=== PATIENT | male | born 1960 | race Caucasian/White ===

== ENCOUNTER 2025-03-16 09:41 | Outpatient (AMB) | payer OTHER, SELFPAY ==
--- OUTSIDE RECORDS SUMMARY | 2025-03-16 09:30 | XMS_ITS | Encounter Summary ---
Author Organization [employer] Address [address] [place] [address] Care Team Providers Care Manager Home Name Role Phone Ernesto Espinoza NP Primary Care Provider [phone] Reason for Visit * Consultation (Routine) - Authorized Specialty Diagnoses / Procedures Referred By Contac t Referred To Contact Neurosurgery Diagnoses DDD (degenerative disc disease), lumbar Lumbar stenosis with neurogenic claudication Scoliosis Spondylosis of cervical spine Chronic right SI joint pain Ernesto Espinoza NP [address] [address] Phone: tel: fax:[phone] [facility] [address] [place] [address] Phone: tel: fax: Referral ID Status Reason Start Date Expiration Date Visits Requested Visits Authorized [id number] Authorized Specialty Services Required 02/23/2025 02/23/2026 1 1 Encounter Details Date Type Department Care Team (Latest Contact Info) Description 03/16/2025 9:30 AM EDT [facility] [address] [place] [phone] DDD (degenerative disc disease), lumbar; Lumbar stenosis with neurogenic claudication; Scoliosis; Spondylosis of cervical spine; Chronic right SI joint pain Social History Tobacco Use Types Packs/Day Years Used Date Smoking Tobacco: Never Smokeless Tobacco: Never Alcohol Use Standard Drinks/Week Comments Not Currently 0 (1 standard drink = 0.6 oz pur e alcohol) Sex and Gender Information Value Date Recorded Sex Assigned at Male 10/02/2024 7:08 PM EDT Legal Sex Male 8:28 AM EST Gender Identity Male 10/02/2024 7:08 PM EDT Sexual Orientation Straight 10/02/2024 7: 08 PM EDT documented as of this encounter Plan of Treatment Upcoming Encounters Date Type Department Care Team (Latest Contact Info) Description 03/16/2025 1:00 PM EDT Pre-Admission Testing [facility] Pre-Admission Testing [address] [place] [address] 03/17/2025 2:00 PM EDT Treatment [facility] Physical Therapy [address] [place] [address] Delfino Britton PT 03/26/2025 9:30 AM EDT Hospital Encounter [facility] Main [place] [address] [place] [phone] Janet Beckford MD [address] [place] [address] 03/26/2025 9:30 AM EDT - 03/26/2025 11:30 AM EDT Surgery [facility] Main OR [address] [place] [address] Janet Beckford MD [address] [place] [address] L3-4 resection of synovial cyst w/ coflex stabilization [44485 (CPT ) +1 more] 04/03/2025 8:40 AM EDT Clinical Support [address] [address] 05/25/2025 1:00 PM EST PACE External Visit [address] [address] Scheduled Procedures Name Priority Associated Diagnoses Date/Ti me DECOMPRESSION LUMBAR INTRALAMINAR IMPLANT Spinal stenosis, lumbar region without neurogenic claudication 03/26/2025 9:30 AM EDT documented as of this encounter Visit Diagnoses Diagnosis Spinal stenosis, lumbar region without neurogenic claudication- Primary DDD (degenerative disc disease), lumbar Degeneration of lumbar or lumbosacral intervertebral disc Lumbar stenosis with neurogenic claudication Scoliosis Scoliosis (and kyphoscoliosis), idiopathic Spondylosis of cervical spine Chronic right SI joint pain Disorders of sacrum Spinal stenosis, lumbar region without neurogenic claudication documented in this encounter Orders Outpatient Referral Count Last Ordered Date Fir st Ordered Date AMB REFERRAL TO NEUROSURGERY 03/16/2025 documented in this encounter Care Teams Manager Home Relationship Specialty Start Date End Date Ernesto Espinoza NP [address] [place] [address] PCP - General PACE 01/30/25 documented as of this encounter
--- NOTE | 2025-03-16 09:51 | A.SPINEOV_ITS ---
Vital Signs 03/16/25 09:51 Height 5 ft 5 in Weight 180 lb BMI 30.0 Intake Visit Reasons: LBP Intake Note: Mr. Pearson is here today c/o Low back pain and Difficulty with walking. [employer] Worker Required: No Allergies ibuprofen Allergy (Severe, Verified 03/16/25 09:52) Rash Penicillins Allergy (Severe, Verified 03/16/25 09:52) Rash Physical Exam Vital Signs: BMI result Body Mass Index 30.0 Assessment & Plan Assessment & Plan (1) Lumbar degenerative disc disease: Code(s): M51.369 - Other intervertebral disc degeneration, lumbar region without mention of lumbar back pain or lower extremity pain Category: Medical Plan Dear Ernesto, Thank you for referring Mr Pearson to our office today. He is a 64-year-old gentleman who comes in today for a 2nd opinion. He was a little confused as to why he was here. He is due to have surgery next week I believe with at [facility]. He had an L3-4 decompression in 2022, and had recurrence of right-sided leg pain, was diagnosed with a synovial cyst on the right at L3-4. He is going to have coflex placed and removal of synovial cyst. He has back pain and right leg pain that goes into his anterior thigh. He has been through conservative management in the form of therapy and injections as well as medications. PMH: Cerebral palsy with spasticity, asthma, GERD, high cholesterol Social hx: He does not smoke, drink or use any recreational drugs Medications: Tylenol, aspirin, gabapentin Singulair, simvastatin, omeprazole Allergies: Ibuprofen and penicillin Physical exam: Walks with a spastic gait and a walker. He has some mild weakness of his right hip flexor. Reflexes are brisk. Imaging review: Lumbar MRI done at [facility] shows disc degeneration at L3-4 with a slight spondylolisthesis, right-sided synovial cyst causing compression of the right L4 nerve Impression: 64-year-old gentleman here for a 2nd opinion about his lumbar spin e. He was little confused why he was here as he is already have in a planned surgery with Dr. Jarquin in the next week or so to have a coflex device placed and resection of the synovial cyst. He is happy with the plan and wants to move ahead with the surgery to help with his pain. His MRIs show he has a synovial cyst and slight spondylolisthesis. He is looking to avoid a fusion and are going to place coflex and this certainly seems reasonable given his symptomatic complaints and his MRI findings. Thank you for allowing us to care for your patient. The total time spent with this visit with this patient was 45 minutes reviewing history, physical exam, lumbar imaging review, and implementation of treatment plan or further diagnostic testing Mc Thrasher MD,PhD [facility] Coding Level of Care Code New Pt Level 4 (91980) Diagnoses Lumbar degenerative disc disease M51.369
--- OUTSIDE RECORDS SUMMARY | 2025-03-16 11:48 | XMS_ITS ---
Author Organization [facility] Address [address] [place] [address] Phone Care Team Providers Care Casing Running Machine Tender Name Role Phone Ernesto Espinoza NP Primary Care Provider [phone] [facility] Status:Enrolled (Active) Start date:01/26/2025 Enrollment date:01/26/2025 Related program episode:Program of All-Inclusive Care for the Elderly (Active) Case Team Name Relationship Phone Cristel Jaramillo MATERIAL HANDLING TECHNICIAN Registered Nurse(Responsible S taff) Continued Care and Services Coordination
--- OUTSIDE RECORDS SUMMARY | 2025-03-16 11:48 | XMS_ITS | Encounter Summary ---
Author Organization [employer] Address [address] [place] [address] Care Team Providers Care Occupational Nurse Name Role Phone Ernesto Espinoza NP Primary Care Provider [phone] Reason for Visit * Reason Onset Date Comments Scheduling 03/12/2025 T.C to confirm P T visit. No answer VM left for participant to call back if he is interested in progressing with ex and re assess HEP. Encounter Details Date Type Department Care Team (Late st Contact Info) Description 03/12/2025 Telephone Ticket [facility] [address] [place] [address] Delfino Britton, PT Social History Tobacco Use Types Packs/Day Years [...] PM EDT documented as of this encounter Progress Notes * Delfino Britton PT - 03/12/2025 11:22 AM EDT T.C to confirm PT visit. No answer VM left for participant to call back if he is interested in progressing with ex and re assess HEP. documented in this encounter Plan of Treatment Upcoming Encounters Date Type Department Care Team (Latest Contact Info) Description 03/16/2025 1:00 PM EDT Pre-Admission Testing [facility] Pre-Admission Testing [address] [place] [phone] 03/17/2025 2:00 PM EDT Treatment [facility] Physical Therapy [address] [place] [address] Delfino Britton, VANESA 03/26/2025 9:30 AM EDT Hospital Encounter [facility] Main OR [address] [place] [address] Janet Beckford MD [address] [place] [address] 03/26/2025 9:30 AM EDT - 03/26/2025 11:30 AM EDT Surgery [facility] OR [address] [place] [phone] Janet Beckford MD [address] [place] [address] L3-4 resection of synovial cyst w/ coflex stabilization [[id number] (CPT ) +1 more] 04/03/2025 8:40 AM EDT [facility] [address] [address] 05/25/2025 1:00 PM EST PACE External Visit [address] [address] Scheduled Procedures Name Priority Associated Diagnoses Date/Ti me DECOMPRESSION LUMBAR INTRALAMINAR IMPLANT Spinal stenosis, lumbar region without neurogenic claudication 03/26/2025 9:30 AM EDT documented as of this encounter Visit Diagnoses Not on filedocumented in this encounter Care Teams Occupational Nurse Relationship Specialty Start Date End Date Ernesto Espinoza NP [address] [place] [address] PCP - General PACE 01/30/25 documented as of this encounter
--- OUTSIDE RECORDS SUMMARY | 2025-03-16 11:48 | XMS_ITS ---
Author Organization [facility] Address [address] [place] [address] Phone Care Team Providers Care Electrician Refinery Name Role Phone Ernesto Espinoza NP Primary Care Provider [phone] Program of All-Inclusive Care for the Elderly Status:Enrolled (Active) Start date:09/30/2024 Enrollment date:01/30/2025 Enrollment reason:Post acute care coordination Related social drivers of health:Housing Instability, TH Health Literacy, Financial Risk, Transportation, Social Isolation, Food Risk Related service episodes:[facility] Home Health Aide Services (Active) Overview This episode will track PACE documentation. Case Team Name Relationship Phone Ernesto Espinoza PROOFER PREPRESS Nurse Practitioner [phone] Steve Escalante Recreational Therapist Kelsey Wheatley RN Programming Internship Cristel Jaramillo OUTCOMES ANALYST Chief Transfer And Pumphouse Operator Pavel Ohara OT Occupational Therapist Hieu Hay RN Registered Nurse Marianne Spann RD Dietitian Rei Srivastava PT Physical Therapist Morris Hart [facility] Officer Anand LIZARRAGAW [employer] Developer Keisha Liang operations support managerProgramming Internship Alecia Wynn RN Registered Nurse Renay Atkinson [employer] Developer Bere Olivo OT Occupational Therapist Matilde VEGAW [employer] Developer Delfino Britton PT Physical Therapist Lizabeth Mendoza MD Consulting Physician Continued Care and Services Coordination
--- OUTSIDE RECORDS SUMMARY | 2025-03-16 11:49 | XMS_ITS | Clinical Summary ---
Author Organization [facility] Address [address] [place] [address] Care Team Providers Care Stock Shaper Name Role Phone Angeline Onofre MD Primary Care Provider Social History Tobacco Use Types Packs/Day Years Used Date Smoking Tobacco: Never Assessed Sex and Gender Information Value Date Recorded Sex Assigned at Not on file Legal Sex Male 1:47 PM EDT Gender Identity Not on file Sexual Orientation Not on file Plan of Treatment Health Maintenance Due Date Last Done Comments Hepatitis C Virus Screening 1960 HIV Screening 1973 DTaP/Tdap/Td Vaccines (1 - Tdap) 1979 Pneumococcal Vaccines 50+ (1 of 1 - PCV) 2010 Zoster (Shingles) Vaccine (1 of 2) 2010 COVID-19 Vaccine ( - 2023-2 5 season) 2025 RSV Vaccine 60 years and old er and Patients (1 - 1-dose 75+ series) 2035 Hepatitis B Vaccines Aged Out No long er eligible based on patient's age to complete this topic Care Teams Stock Shaper Relationship Specialty Start Date End Date Angeline Onofre MD [address] [place] [id number] PCP - General
--- OUTSIDE RECORDS SUMMARY | 2025-03-16 11:49 | XMS_ITS | Clinical Summary ---
Author Organization [facility] Address [address] [place] [address] Phone Care Team Providers Care Car Sealer Name Role Phone Ernesto Espinoza NP Primary Care Provider [phone] Allergies Active Allergy Reactions Criticality Noted Date Comments Ibuprofen Nausea And Vomiting 02/27/2018 Penicillins Rash 02/27/2018 Medications medical supply, miscellaneous (MISCELLANEOUS MEDICAL SUPPLY MISC) Cpap historical Acti ve polyethylene glycol (Golytely) 236-22.74-6.74 -5.86 gram solution Take 4L by mouth once for one dose. May substitue any PEG. Starting at 6PM the night before your procedure drink 1 8oz glasses at your own pace until you complete half of the gallon. Finish 2nd half of the gallon 5 hours before your procedure. 4000 mL 12/11/19 25 Active Additional Information Patient not taking.Reported on 02/06/2025 acetaminophen (Tylenol Arthritis Pain) 650 mg 8 hr tabletIndications: Lumbar stenosis with neurogenic claudication Take 2 tablets (1,300 mg total) by mouth 1 (one) time each day. 56 tablet 11 02/12/20 026 Active albuterol HFA (PROAIR HFA ; PROVENTIL HFA ; VENTOLIN HFA) 90 mcg/actuation inhalerIndications :Mild intermittent asthma without complication Inhale 2 puffs by mouth every 6 (six) hours if needed for wheezing. Home (Next Day Home) 6.7 g 5 02/12/20 25 026 Active alfuzosin (UROXATRAL) 10 mg 24 hr tabletIndications: Benign prostatic hyperplasia with lower urinary tract symptoms, symptom details unspecified Take 1 tablet (10 mg total) by mouth 1 (one) time each day. Do not crush, chew, or split. 28 each 02/12/20 25 Active aspirin 81 mg EC tabletIndications: Mixed hyperlipidemia Take 1 tablet (81 mg total) by mouth 1 (one) time each day. 28 each 02/12/20 25 Active bisacodyL (DULCOLAX) 5 mg EC tabletIndications: Constipation, unspecified constipation type Take 2 tablets by mouth right before beginning bowel prep. See instructions provided by the office 2 tablet 02/12/20 Active cetirizine (ZyrTEC) 10 mg tabletIndications: Allergic rhinitis, unspecified seasonality, unspecified trigger Take 1 tablet (10 mg total) by mouth 1 (one) time each day. 90 tablet 1 02/12/20 Active gabapentin (NEURONTIN) 300 mg capsuleIndications :Lumbar stenosis with neurogenic claudication Take 1 capsule (300 mg total) by mouth at bedtime. at bedtime 28 each 02/12/20 Active montelukast (SINGULAIR) 10 mg tabletIndications: Mild intermittent asthma without complication Take 1 tablet (10 mg total) by mouth at bedtime. 28 tablet 02/12/20 Active omeprazole (PriLOSEC) [address] capsuleIndications :Gastroesophageal reflux disease without esophagitis Take 1 capsule (40 mg total) by mouth 1 (one) time each day. Do not crush or chew. 28 capsule 5 02/12/20 Active simvastatin (ZOCOR) 20 mg tabletIndications: Mixed hyperlipidemia Take 1 tablet (20 mg total) by mouth at bedtime. 28 each 02/12/20 Active Active Problems Problem Noted Date Diagnosed Date Spinal stenosis, lumbar eva on without neurogenic claudication 02/27/2025 Healthcare maintenance 02/16/2025 Assessment & Plan (02/16/2025 10:34 AM EDT): Documentation is for encounter on 02/04/2025: HBA1C = 5.2%. Par has a reported history of prediabetes (The HbA1c test is crucial for diagnosing prediabetes. An HbA1c level between 5.7% and 6.4% indicates prediabetes). Currently he is doing better with his blood glucose control with diet control. Chronic condition, stable, asymptomatic, will continue current medications and CTM. Osteoarthritis of spine with radiculopathy, lumb ar region 11/28/2024 Assessment & Plan (02/04/2025 4:09 PM EDT): As aforementioned, he is symptomatic from lumbar stenosis with right lower extremity radiculopathy. Neurosurgery f/u this Sunday02/06/2025, future surgery is pending, will continue current medications and monitor. Assessment & Plan (11/28/2024 4:02 PM EDT): Patient is s/p L3-4 decompression 12/21/2022. It did help some of his walking symptoms for a time. Then he started having progressive worsening of his low back pain. Currently he states he gets a lot of back pain with going from sitting to standing, when he standing for any length of time he has a lot of right low back pain. He had right L3 TFE (with attempt to rupture cyst) November 21, [address] Sher, saw some improvement from his back pain, before injection 04/10, after injection -02/08. He is also noticing some right anterior thigh pain 11/08 that mostly has been bothering him since injection. He states also his right knee feels weird . He also has history of right SI joint injection 09/18/2024 and states it did not help his pain at all, even temporarily. He also had right L4-5, L5-S1 facet injections 08/16/2024, bilateral L4-5, L5-S1 facet injections 11/23/2023. He cannot specifically recall if those injections helped his back pain. Since his previous lumbar surgery he has also tried physical therapy. Patient had MRI lumbar spine 10/28/2024 [facility] that showed right L3-4 synovial cyst from the right facet joint projecting into the central canal causing moderate stenosis. He also has a disc at L4-5. No significant stenosis at any other level. I reviewed MRI images in detail with the patient and his daughter on the computer. Dr. Jarquin also reviewed the MRI today as well. Mr. Pearson has persistent right low back pain, some radicular pain into the right anterior thigh, affecting his ability to go from sit to standing, standing any length of time, makes his walking more difficult. He has had multiple cortisone injections without long-term improvement. Dr. Jarquin offered patient reexploration right L3- 4 decompression and placement of Coflex device. We discussed the surgery in detail including risk benefits, including but not limited to need for general anesthesia, hematoma, infection, increased risk for spinal fluid leak with reexploration surgery, damage to a nerve, potential for no improvement in symptoms postop. Postop restrictions and expectations discussed. All questions answered. He will discuss with his family, will call us with an update next week. Dr. Jarquin saw patient on today's visit as well for surgery discussion. Chronic right SI joint pain 09/07/2023 Overview (04/03/2024): Last Assessment & Plan: Patient is over 8 months s/p L3-4 decompression, did not see improvement in the numbness tingling in his feet, leg symptoms, improvement in walking postop. He was having right low back and SI joint/hip pain, went to physical therapy once a week for about 6 weeks. Thinks it was helping somewhat but he still is bothered by the right low back pain, which he describes as being in the right hip and pelvic region, sit bone/tailbone. In 2020 he had cortisone injections with Dr. Sher, including L4-5, L5-S1 facet injections, which did not help at the time. He states more recently on occasion he notes that the left leg is slightly dragging again, as preop, but not consistently. He cannot take Motrin due to stomach issues. Mr. Pearson had hip x-rays April 2023, I reviewed them it does appear he has right >left SI joint degenerative changes. We talked about referral back to Dr. Sher for right SI joint injection, which he would like to try. He does feel physical therapy has been helping, would like to continue, prescription provided. I recommended he wait till after the injection to see how he is doing before going to physical therapy. He also requested a refill on the gabapentin, feels it is helpful to take at bedtime. We talked about getting an MRI lumbar spine with and without contrast if the left leg symptoms continue to progress, or he has worsening back pain, no improvement after injection. All questions answered. He will call with any concerns or questions. Assessment & Plan (02/04/2025 4:08 PM EDT): Chronic, intermittent condition, asymptomatic currently. Plan: Continue with Neurosurgery and potential L3-4 surgery, continue current medications and monitor. Chronic low back pain 11/02/2022 Assessment & Plan (02/04/2025 3:58 PM EDT): Historical documentation: His lumbar spine MRI at [facility] on 10/28/2024 shows moderate central stenosis at L3-4 from a right-sided bilobed synovial cyst measuring 10 x 5 x 10 mm. This arises from the right L3-4 facet and is indicative of the degree of facet arthropathy found here. He has a history of an L3-4 decompressive laminectomy on 12/21/2022. His neurosurgeon, Dr. Jarquin is quoted as saying: so any further surgery is expected to destabilize the face. He states his back pain started with a pinched nerve in 2013, lumbar laminectomy decompression of L3-4 in 2022, followed by multiple spinal injections which eventually ran their course, now he is back under that care of Neurosurgery. He has a f/u appointment this 02/06/2025. SDR will be presented to ID[facility] regarding the approval or denial of his surgeon's recommended surgical choice: Coflex interlaminar device. The neurosurgeon describes the difference in surgical options as: The alternative to the simple interlaminar device is a pedicle screw fixation and fusion, a much more involved procedure with increased recovery time in the hospital and in the postoperative period with an expected 4 to 6 weeks out of work. The interlaminar device will provide stability without affecting the adjacent levels. This is important as adjacent segment degeneration is a known risk factor for pedicle screw fusion. Plan: apply for approval through a formal SDR process and CTM. Lumbar stenosis with neurogenic claudication 09/2022 Assessment & Plan (02/08/2025 10:17 PM EDT): Mr. Pearson is s/p L3-4 decompression 12/21/2022. He follows up to discuss future surgery options again: reexploration L3-4 right decompression, resection of synovial cyst with either placement of a Coflex device vs fusion. He has additional questions and cannot remember everything we discussed at his last visit. Since his last visit in October, his previous insurance [employer] denied the Coflex device and wanted his to have a fusion instead. He prefers the surgery using the Coflex instead of fusion, has switched his insurance carrier at the beginning of this month, and is part of the PACE program at [facility]. He states he is eager to proceed with surgery because he feels worse, with increased back pain radiating to his right leg and over time notes walking is getting worse. He wants to be more active and be able to play with his grandchildren. He has had multiple cortisone injections without long-term improvement. (Please see note 11/28/24 for details as to his injection history). We again reviewed the images of his L/S MRI 10/28/2024 [facility] that showed right L3-4 synovial cyst from the right facet joint projecting into the central canal causing moderate stenosis. We had detailed discussion including using models of each surgery and hardware used for both surgeries. We discussed the risks and benefits in detail, including but not limited to need for general anesthesia, hematoma, infection, increased risk for spinal fluid leak with reexploration surgery, damage to a nerve, potential for no improvement in symptoms postop. Postop restrictions and expectations discussed. All questions answered. He still prefers the Coflex device over fusion if his current insurance company will approve it, we will call him once we get the response back from the new insurance plan. Assessment & Plan (02/04/2025 4:06 PM EDT): Currently, Par is symptomatic from lumbar stenosis with right lower extremity radiculopathy. He is pending approval for the Coflex interlaminar device implantation vs pedical screw fixation and laminectomy, decompression. He has a f/u appt. With Neurosurgery 2024. Spondylosis of cervical spine 11/02/2022 Assessment & Plan (02/04/2025 4:36 PM EDT): Chronic condition, asymptomatic at this time, will CTM. Osteoarthritis of carpometac arpal (CMC) joint of both thumbs 04/02/2020 Assessment & Plan (02/04/2025 4:35 PM EDT): Not currently active on exam, will CTM. Trigger finger 04/02/2020 Assessment & Plan (02/04/2025 4:36 PM EDT): Not a currently active condition, will CTM. Allergic rhinitis 02/27/2018 Assessment & Plan (02/04/2025 4:10 PM EDT): Plan: Continue Cetirizine. Provided Par with Nasal Saline Rinse for use prior to bed. Par has f/u next week, will CTM. Cerebral palsy with spastic diplegia (CMS/[facility] V24, CMS/[facility] V28) 02/27/2018 Overview (04/03/2024): And ataxia Assessment & Plan (02/04/2025 3:50 PM EDT): Par endorsed CP since he was an infant. He has muscle wasting of bilateral lower extremities. He ambulates with a crouched gait, rotational deformity flexion contractures of bilateral knees. Ambulates well with rolling walker, maintains balance, no spasticity appreciated on exam. His CP is currently stable, will CTM. Constipation 02/27/2018 Assessment & Plan (02/04/2025 4:19 PM EDT): Chronic intermittent condition, not currently active. Par was instructed to notify [facility] if and when he starts to notice constipation. Par stated understanding and agreed with plan. Colon polyp 02/27/2018 Assessment & Plan (02/04/2025 4:21 PM EDT): Par endorsed rescheduling his repeat colonoscopy multiple times. Par expressed interest in the fecal occult blood test, will order and CTM. History of vertigo 02/27/2018 Assessment & Plan (02/04/2025 4:38 PM EDT): Par endorsed a remote history of room spinning dizziness that has never recurred. DDD (degenerative disc disease), lumbar 02/28/20 18 Overview (04/03/2024): L4-L5; cervical spine also Assessment & Plan (02/04/2025 4:35 PM EDT): Chart review found no evidence of degenerative disc disease in his lumbar spine. He has spinal stenosis with radiculopathy related to MPRESSION: 1. Mild lumbar levoscoliosis. 2. Multilevel degenerative changes of the lumbar spine, most prominent at L3-4 where hypertrophic degenerative changes and a facet joint synovial cyst results in moderate spinal stenosis. As seen on MRI Lumbar spine on 10/29/2024 F/u Neurosurgery appt., in two days, will CTM GERD (gastroesophageal reflux disease) 8 Assessment & Plan (02/04/2025 4:30 PM EDT): Par denied any HB symptoms, currently well controlled on PPI, will continue current medications and CTM. Headache 02/27/2018 Assessment & Plan (02/04/2025 4:00 PM EDT): Chronic, intermittent condition that is currently stable, no recent Has, will continue current medications and monitor. Hearing loss 02/27/2018 Assessment & Plan (02/04/2025 4:03 PM EDT): Reported bilateral hearing loss. During exam this provider had to use elevated tone at times. Plan: Referral to [facility] [place] Audiology and CTM. Impacted cerumen on the right. Debrox ear drops provided with instructions. Par is scheduled to RTC next Sunday for a nursing visit for right ear lavage for removal of ear wax. Hyperlipidemia 02/27/2018 Assessment & Plan (02/04/2025 4:38 PM EDT): 11/28/2024: Lipid panel showed an LDL of 109 (H). Plan: Continue STATIN therapy and continue to advocate for a low fat, low carb diet and monitor. Hypertension 02/27/2018 Assessment & Plan (02/04/2025 4:18 PM EDT): Normotensive on exam, continue current medications and monitor. Benign prostatic hyperplasia with urinary freque ncy 02/27/2018 Assessment & Plan (02/04/2025 4:32 PM EDT): Naseem has bladder outlet obstruction with enlarged prostate currently treated with Alfuzosin. Urology f/u scheduled for 02/11/2025, will CTM. SHALONDA (obstructive sleep apnea) 02/27/2018 Overview (04/03/2024): [facility] [place] Home Sleep Apnea Test: Date 12/2019; BMI 29; RDI 21, AHI 21; average oxygen saturation 94% (lowest 80% without saturations <88% for 5% or more of study) - Obstructive Sleep Apnea - moderate; without sleep related hypoventilation by 2019 home sleep apnea test. Assessment & Plan (02/04/2025 4:13 PM EDT): Naseem states he could not tolerate his CPAP and does not use one. 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 Naseem agreed to repeat sleep study, will order and CTM. Scoliosis 02/27/2018 Assessment & Plan (02/04/2025 4:35 PM EDT): Chronic condition, Naseem is under the care of neurosurgery, will CTM. Mild persistent asthma without complication 10/30 Assessment & Plan (02/04/2025 4:11 PM EDT): Naseem reports his asthma is well controlled on Proair HFA BID. Plan is to continue current therapy and continue to monitor. Resolved Problems Problem Noted Date Diagnosed Date Resolved Date Acute upper respiratory infection 05/18/2022 02/04/2025 COVID-19 07/20/2020 02/04/2025 Overview (04/03/2024): Recvd Remdesivir and Dexamethasone Encounters Date Type Department Care Team Description 03/16/2025 9:30 AM EDT PACE External Visit [facility] [address] [place] [address] DDD (degenerative disc disease), lumbar; Lumbar stenosis with neurogenic claudication; Scoliosis; Spondylosis of cervical spine; Chronic right SI joint pain 03/12/2025 [facility] Physical Therapy [address] [place] [address] Delfino Britton, PT 03/03/2025 Telephone [facility] [address] [place] [address] Kelsey Wheatley, KAREEM 02/27/2025 3:30 PM EDT Treatment [facility] Physical [facility] [address] [place] [address] Delfino Britton, PT 02/26/2025 Plan of Care Documentation [facility] [address] [place] [address] 02/25/2025 2:00 PM EDT [facility] [address] [place] [address] 02/24/2025 11:00 AM EDT PACE Home Care / [facility] Home [facility] [facility] [address] [place] [address] Jaimee 02/16/2025 11:00 AM EDT Clinical Support [facility] [address] [place] [address] Angeles Krueger LPN Cerebral palsy with spastic diplegia (CMS/HCC V24, CMS/HCC V28) (Primary Dx) 02/11/2025 9:00 AM EDT [facility] [address] [place] [address] Benign prostatic hyperplasia with incomplete bladder emptying 02/10/2025 10:00 AM EDT PACE Home Care / [facility] [address] [place] [phone] Jaimee 02/06/2025 9:00 AM EDT Office Visit Neurosurgery [place] [address] [place] [address] Nenita Peterson PA Lumbar stenosis with neurogenic claudication (Primary Dx); Osteoarthritis of spine with radiculopathy, lumbar region 02/05/2025 2:30 PM EDT PACE Home Care / PACE Home Visit [facility] [place] [facility] [address] [place] [address] Estefania Vidal 02/04/2025 12:30 PM EDT PACE Assessment [facility] [place] [facility] [address] [place] [address] Ernesto Espinoza NP Gastroesophageal reflux disease without esophagitis (Primary Dx); Mixed hyperlipidemia; Primary hypertension; OAB (overactive bladder); Benign prostatic hyperplasia with incomplete bladder emptying; Cerebral palsy with spastic diplegia ([facility] V24, [facility] V28); Lumbar stenosis with neurogenic claudication; Chronic bilateral low back pain, unspecified whether sciatica present; Nonintractable headache, unspecified chronicity pattern, unspecified headache type; Hearing loss, unspecified hearing loss type, unspecified laterality; Chronic right SI joint pain; Osteoarthritis of spine with radiculopathy, lumbar region; Allergic rhinitis, unspecified seasonality, unspecified trigger; SHALONDA on CPAP; Constipation, unspecified constipation type; Polyp of colon, unspecified part of colon, unspecified type; Health care maintenance; Degeneration of intervertebral disc of lumbar region, unspecified whether pain present; Osteoarthritis of carpometacarpal (CMC) joint of both thumbs; Scoliosis, unspecified scoliosis type, unspecified spinal region; Spondylosis of cervical spine; Trigger finger, unspecified finger, unspecified laterality; History of vertigo; Healthcare maintenance 02/03/2025 1:00 PM EDT PACE Assessment [facility] [place] [facility] [address] [place] [address] Pavel Ohara OT Cerebral palsy with spastic diplegia ([facility] V24, [facility] V28) (Primary Dx) 02/02/2025 11:45 AM EDT Clinical Support [facility] [place] [facility] [address] [place] [address] Kelsey Wheatley, KAREEM 01/30/2025 Telephone [facility] Occupational Therapy [address] [place] [phone] Pavel Ohara OT 01/20/2025 11:30 AM EDT Clinical Support [address] [phone] Angeles Krueger LPN Lumbar stenosis with neurogenic claudication (Primary Dx) 01/14/2025 11:30 AM EDT PACE Assessment [facility] Physical [facility] [address] [place] [phone] Delfino Britton PT Lumbar stenosis with neurogenic claudication (Primary Dx) 01/14/2025 10:30 AM EDT Clinical Support [address] [phone] Lizabeth Mendoza MD Encounter for medical assessment (Primary Dx) 01/12/2025 Telephone Neurosurgery [place] [facility] [address] [phone] Janet Jarquin MD 12/22/2024 Telephone Gastroenterology [facility] 175 [facility] [address] [phone] Carson Cunningham MD from Last 3 Months Immunizations Name Administration Dates Next Due Influenza Quadravalent, MDCK , 0.5ml, preservative free (Flucelvax) 6mo and older 05/17/2020,06/23/2019,05/31/2018 Influenza trivalent, with pr eservative (Fluzone; Afluria) 6mo and older 04/06/2017,04/28/2016,04/20/2015,04/10,04/07/2013,02/29/2012,03/28/2011 ,04/21/2010,10/25/2009,04/24/2005 Pneumococcal polysaccharide 23 valent (Pneumovax 23) 2yo and older 05/31/2018,10/25/2009,11/27/2006 Td Tetanus diptheria (Tdvax) 7yo and older 12/18/2005 Tdap Tetanus diptheria acell ular pertussis (Boostrix; Adacel) 7yo and older 05/31/2018,01/07/2016 Surgical History Surgery Date Site/Laterality Comments COLONOSCOPY 06/01/2009 no report or results FOOT SURGERY 1968 Bilateral corrective surgery for th diplegia BACK SURGERY 12/21/2022 L3-4 decompression, Dr. Jarquin Medical History Medical History Date Comments Allergic rhinitis 02/27/2018 Cerebral palsy with spastic diplegia (CMS/[facility] V24, CMS/[facility] V28) 02/27/2018 And ataxia Constipation 02/27/2018 GERD (gastroesophageal reflux disease) 8 Colon polyp 02/27/2018 Hyperlipidemia 02/27/2018 Asthma 02/27/2018 Hypertension 02/27/2018 DDD (degenerative disc disease), lumbar 02/28/20 18 L4-L5; cervical spine also OAB (overactive bladder) 02/27/2018 Scoliosis 02/27/2018 SHALONDA on CPAP 02/27/2018 BPV (benign positional vertigo), left 02/27/2018 Headache 02/27/2018 Hearing loss 02/27/2018 bilateral Family History Medical History Relation Name Comments Dementia Father Diabetes Father Nephrolithiasis Father Diabetes Mother Prostate cancer Uncle Relation Name Status Comments Brother 1 Alive Brother 2 Alive Brother 3 Alive Brother 4 Alive Daughter Alive Father Alive Mother Alive Sister Alive Son 1 Alive Son 2 Alive Son 3 Alive Uncle Social History Tobacco Use Types Packs/Day Years Used Date Smoking Tobacco: Never Smokeless Tobacco: Never Tobacco Cessation:Counseling Given: Not Answered Alcohol Use Standard Drinks/Week Comments Not Currently 0 (1 standard drink = 0.6 oz pur e alcohol) Sex and Gender Information Value Date Recorded Sex Assigned at Male 10/02/2024 7:08 PM EDT Legal Sex Male 8:28 AM EST Gender Identity Male 10/02/2024 7:08 PM EDT Sexual Orientation Straight 10/02/2024 7: 08 PM EDT Obstetrics History Last Filed Vital Signs Vital Sign Reading Time Taken Comments Blood Pressure 138/76 02/16/2025 8:54 AM EDT Pulse 58 02/16/2025 8:54 AM EDT Temperature 36.3 C (97.4 F) 02/04/2025 2:46 PM EDT Respiratory Rate 18 02/16/2025 8:54 AM EDT Oxygen Saturation 98% 02/16/2025 8:54 AM EDT Inhaled Oxygen Concentration - - Weight 78.9 kg (174 lb) 02/06/2025 9:00 AM EDT Height 162.6 cm (5' 4 ) 02/06/2025 9:00 AM EDT Body Mass Index 29.87 02/06/2025 9:00 AM EDT Plan of Treatment Upcoming Encounters Date Type Department Care Team (Latest Contact Info) Description 03/16/2025 1:00 PM EDT Pre-Admission Testing [facility] Pre-Admission Testing [address] [place] [phone] 03/17/2025 2:00 PM EDT Treatment [facility] Physical Therapy [address] [place] [phone] Delfino Britton, VANESA 03/26/2025 9:30 AM EDT Hospital Encounter [facility] Main OR [address] [place] [phone] Janet Jarquin MD [address] [place] [address] 03/26/2025 9:30 AM EDT - 03/26/2025 11:[address] [facility] OR [address] [place] [phone] Janet Jarquin MD [address] [place] [address] L3-4 resection of synovial cyst w/ coflex stabilization [66751 (CPT ) +1 more] 04/03/2025 8:40 AM EDT Clinical Support [facility] [address] [place] [phone] 05/25/2025 1:00 PM EST PACE External Visit [facility] [address] [place] [phone] Scheduled Procedures Name Priority Associated Diagnoses Date/Ti me DECOMPRESSION LUMBAR INTRALAMINAR IMPLANT Spinal stenosis, lumbar region without neurogenic claudication 03/26/2025 9:30 AM EDT Health Maintenance Due Date Last Done Comments Zoster Vaccines (1 of 2) 2010 Pneumococcal Vaccine: 50+ Years (2 of 2 - PCV) 05/31/2019 05/31/2018, 10/25/2009, 11/27/2006 RSV Immunization Adult Patients (1 - Risk 60-74 years 1-dose series) 2020 Colorectal Cancer Screening: Colonoscopy 06/10/2022 12/15/2015 HIV Screening 06/10/2022 Social Influencers of Health Screening 06/10/2022 Depression Screening 07/02/2024 COVID-19 Vaccine ( - season) 2025 Influenza Vaccine (#1) 2025 , 06/23/2019, 05/31/2018, Additional history exists Hypertension/CHF/CAD Annual BMP Blood Test 02/04/2026 02/04/2025, 11/28/2024, 11/30/2023, Additional history exists DTaP,Tdap,and Td Vaccines (4 - Td or Tdap) 05/31/2028 05/31/2018, 01/07/2016, 12/18/2005 Cholesterol Screening (Lipid Panel) 11/28/2029 11/28/2024, 11/30/2023, 11/30/2023 Hepatitis C Screening Completed 05/31/2018 HIB Vaccines Aged Out No longer eligi ble based on patient's age to complete this topic HPV Vaccines Aged Out No longer eligi ble based on patient's age to complete this topic Hepatitis A Vaccines Aged Out No long er eligible based on patient's age to complete this topic Hepatitis B Vaccines Aged Out No long er eligible based on patient's age to complete this topic IPV Vaccines Aged Out No longer eligi ble based on patient's age to complete this topic MMR Vaccines Aged Out No longer eligi ble based on patient's age to complete this topic Meningococcal ACWY Vaccine Aged Out N o longer eligible based on patient's age to complete this topic Meningococcal B Vaccine Aged Out No l onger eligible based on patient's age to complete this topic RSV Immunization Patients Under 20 months Aged Out No longer eligible based on patient's age to complete this topic Varicella Vaccines Aged Out No longer eligible based on patient's age to complete this topic Procedures Procedure Name Priority Date/Time Associated Diagnosis Comments INTERFERON GAMMA INTERPRETATION Routine 02/18/2025 10:53 AM EDT Adult general medical examination INTERFERON GAMMA ANTIGEN 2 Routine 02/18/2025 10:53 AM EDT Adult general medical examination INTERFERON GAMMA ANTIGEN 1 Routine 02/18/2025 10:53 AM EDT Adult general medical examination INTERFERON GAMMA MITOGEN Routine 02/18/2025 10:53 AM EDT Adult general medical examination INTERFERON GAMMA NIL Routine 02/18/2025 10:53 AM EDT Adult general medical examination INTERFERON GAMMA FOR TB, QUALITATIVE Routine 02/18/2025 10:53 AM EDT Adult general medical examination PSA TOTAL, FREE AND COMPLEXED, DIAGNOSTIC Routine 02/04/2025 2:12 PM EDT Adult general medical examination CBC WITH AUTO DIFFERENTIAL Routine 02/04/2025 2:03 PM EDT Gastroesophageal reflux disease without esophagitis Mixed hyperlipidemia Primary hypertension OAB (overactive bladder) Benign prostatic hyperplasia with incomplete bladder emptying Cerebral palsy with spastic diplegia (CMS/HCC V24, CMS/HCC V28) CBC AND DIFFERENTIAL Routine 02/04/2025 2:03 PM EDT Gastroesophageal reflux disease without esophagitis Mixed hyperlipidemia Primary hypertension OAB (overactive bladder) Benign prostatic hyperplasia with incomplete bladder emptying Cerebral palsy with spastic diplegia (CMS/HCC V24, CMS/HCC V28) COMPREHENSIVE METABOLIC PANEL Routine 02/04/2025 2:03 PM EDT Gastroesophageal reflux disease without esophagitis Mixed hyperlipidemia Primary hypertension OAB (overactive bladder) Benign prostatic hyperplasia with incomplete bladder emptying Cerebral palsy with spastic diplegia (CMS/HCC V24, CMS/HCC V28) THYROID STIMULATING HORMONE Routine 02/04/2025 2:03 PM EDT Gastroesophageal reflux disease without esophagitis Mixed hyperlipidemia Primary hypertension OAB (overactive bladder) Benign prostatic hyperplasia with incomplete bladder emptying Cerebral palsy with spastic diplegia (CMS/HCC V24, CMS/HCC V28) LIPID PANEL WITH REFLEX TO DIRECT LDL Routine 11/28/2024 11:00 AM EDT Adult general medical examination Hyperlipidemia, unspecified hyperlipidemia type HEPATITIS C SCREENING Routine 05/31/2018 COLONOSCOPY Routine 12/15/2015 from Last 3 Months or Most Recently Relevant to Health Maintenance Results * Interferon gamma interpretation (02/18/2025 10:53 AM EDT) [facility] Signature Quantiferon Plus Interpretation Negative Negative LAB CHEMISTRY METHOD 02/20/2025 9:29 AM EDT [facility] Blood Venous blood specimen / Unknown Venipuncture / Unknown 02/18/2025 10:53 AM EDT 02/18/2025 10:53 AM EDT us Ernesto Espinoza NP LAB BLOOD ORDERABLES Final Resul t Performing Organization Address City/[facility]/ZIP Co de Phone Number [facility] [address] [place] [address], * Interferon gamma antigen 2 (02/18/2025 10:53 AM EDT) Blood Venous blood specimen / Unknown Venipuncture / Unknown 02/18/2025 10:53 AM EDT 02/18/2025 10:53 AM EDT us Ernesto Espinoza NP LAB BLOOD ORDERABLES Final Resul t Performing Organization Address City/[facility]/ZIP Co de Phone Number [facility] [address] [place] [address], * Interferon gamma antigen 1 (02/18/2025 10:53 AM EDT) Blood Venous blood specimen / Unknown Venipuncture / Unknown 02/18/2025 10:53 AM EDT 02/18/2025 10:53 AM EDT us Ernesto Espinoza NP LAB BLOOD ORDERABLES Final Resul t Performing Organization Address City/[facility]/ZIP Co de Phone Number [facility] [address] [place] [address], * Interferon gamma mitogen (02/18/2025 10:53 AM EDT) Blood Venous blood specimen / Unknown Venipuncture / Unknown 02/18/2025 10:53 AM EDT 02/18/2025 10:53 AM EDT Ernesto Espinoza [employer] LAB BLOOD ORDERABLES Final Resul t Performing Organization Address City/[facility]/ZIP Co de Phone Number [facility] [address] [place] [address], * Interferon gamma NIL (02/18/2025 10:53 AM EDT) Blood Venous blood specimen / Unknown Venipuncture / Unknown 02/18/2025 10:53 AM EDT 02/18/2025 10:53 AM EDT Ernesto Espinoza [employer] LAB BLOOD ORDERABLES Final Resul t Performing Organization Address [facility] de Phone Number [facility] [address] [place] [address], * (ABNORMAL) PSA total, free and complexed (02/04/2025 2:12 PM EDT) PSA 5.52(H) 0.00 - 4.00 ng/mL LAB CHEMISTRY METHOD 02/04/2025 7:05 PM EDT [facility] PSA, Complexed 3.84(H) 0.00 - 3.00 ng/mL LAB CHEMISTRY METHOD 02/04/2025 7:05 PM EDT [facility] PSA, Free 1.7 ng/mL LAB CHEMISTRY METHOD 02/04/2025 7:05 PM EDT [facility] PSA, Free Pct 30.8 >25.0 % LAB CHEMISTRY METHOD 02/04/2025 7:05 PM EDT [facility] Blood Venous blood specimen / Unknown Venipuncture / Unknown 02/04/2025 2:12 PM EDT 02/04/2025 2:12 PM EDT Narrative [facility] - 02/04/2025 7:05 PM EDT Free PSA is a calculated value. The diagnostic usefulness of % free PSA has not been established in patients with Total PSA below 2.6 or above 10 ng/mL. This test was performed using the Centaur Chemiluminescent method. PSA values obtained with other methods cannot be used interchangeably. us Ernesto Espinoza [employer] LAB BLOOD ORDERABLES Final Resul t [facility] [address] [place] [address], * (ABNORMAL) CBC auto differential (02/04/2025 2:03 PM EDT) WBC 5.2 4.8 - 10.8 K/mcL LAB HEMETOLOGY METHOD 02/04[facility]2025 7[facility] RBC 4.80 4.50 - 5.50 M/mcL LAB HEMETOLOGY METHOD 02/04/2025 7:01 PM [facility] Hemoglobin 13.3(L) 13.5 - 17.5 g/dL LAB HEMETOLOGY METHOD 02/04/2025 7:01 PM [facility] Hematocrit 40.8(L) 42.0 - 54.0 % LAB HEMETOLOGY METHOD 02/04/2025 7:01 PM EDT [facility] MCV 84.3 79.0 - 98.0 FL LAB HEMETOLOGY METHOD 02/04/2025 7:01 PM [facility] MCH 27.5 27.0 - 32.0 pcg LAB HEMETOLOGY METHOD 02/04/2025 7:01 PM [facility] MCHC 32.6 32.0 - 37.0 g/dL LAB HEMETOLOGY METHOD 02/04/2025 7:01 PM [facility] RDW 12.8 11.0 - 15.0 % LAB HEMETOLOGY METHOD 02/04/2025 7:01 PM [facility] Platelets 165 130 - 400 K/mcL LAB HEMETOLOGY METHOD 02/04/2025 7:01 PM [facility] MPV 10.9 7.0 - 11.0 FL LAB HEMETOLOGY METHOD 02/04/2025 7:01 PM [facility] NRBC 0.0 <1.0 % LAB HEMETOLOGY METHOD 02/04/2025 7:01 PM [facility] NRBC Absolute 0.00 <0.10 K/mcL LAB HEMETOLOGY METHOD 02/04/2025 7:01 PM [facility] Neutrophils Relative 44.6 % LAB HEMETOLOGY METHOD 02/04/2025 7:01 PM [facility] Lymphocytes Relative 41.8 % LAB HEMETOLOGY METHOD 02/04/2025 7:01 PM [facility] Monocytes Relative 9.1 % LAB HEMETOLOGY METHOD 02/04/2025 7:01 [facility] Eosinophils Relative 3.1 % LAB HEMETOLOGY METHOD 02/04/2025 7:01 PM [facility] Basophils Relative 1.2 % LAB HEMETOLOGY METHOD 02/04/2025 7:01 PM [facility] Immature Granulocytes Relative 0.2 % LAB HEMETOLOGY METHOD 02/04/2025 7:01 PM [facility] Neutrophils Absolute 2.31 1.50 - 7.00 K/mcL LAB HEMETOLOGY METHOD 02/04/2025 7:01 PM [facility] Lymphocytes Absolute 2.16 1.00 - 5.00 K/mcL LAB HEMETOLOGY METHOD 02/04/2025 7:01 PM [facility] Monocytes Absolute 0.47 0.20 - 1.00 K/mcL LAB HEMETOLOGY METHOD 02/04/2025 7:01 PM EDT [facility] Eosinophils Absolute 0.16 0.00 - 0.50 K/mcL LAB HEMETOLOGY METHOD 02/04/2025 7:01 PM EDT [facility] Basophils Absolute 0.06 0.00 - 0.20 K/mcL LAB HEMETOLOGY METHOD 02/04/2025 7:01 PM EDT [facility] Immature Granulocytes Absolute 0.01 0.00 - 0.03 [facility] LAB HEMETOLOGY METHOD 02/04/2025 7:01 PM EDT [facility] Blood Venous blood specimen / Unknown Venipuncture / Unknown 02/04/2025 2:03 PM EDT 02/04/2025 2:03 PM EDT us Ernesto Espinoza [employer] LAB BLOOD ORDERABLES Final Resul t Performing Organization Address City/[facility]/ZIP Co de Phone Number [facility] [address] [place] [address], [place] [phone] * Thyroid stimulating hormone (02/04/2025 2:03 PM EDT) TSH 1.15 0.40 - 4.00 mcIU/mL LAB CHEMISTRY METHOD 02/04/2025 7:34 PM EDT [facility] Blood Venous blood specimen / Unknown Venipuncture / Unknown 02/04/2025 2:03 PM EDT 02/04/2025 2:03 PM EDT us Ernesto Espinoza [employer] LAB BLOOD ORDERABLES Final Resul t [facility] [address] [place] [address], [place] [phone] * Comprehensive metabolic panel (02/04/2025 2:03 PM EDT) Sodium 140 133 - 145 mmol/L LAB CHEMISTRY METHOD 02/04/2025 6:48 PM [facility] Potassium 3.6 3.5 - 5.5 mmol/L LAB CHEMISTRY METHOD 02/04/2025 6:48 PM [facility] Chloride 106 96 - 110 mmol/L LAB CHEMISTRY METHOD 02/04/2025 6:48 PM [facility] CO2 30 21 - 32 mmol/L LAB CHEMISTRY METHOD 02/04/2025 6:48 PM [facility] Anion Gap 4 3 - 11 LAB CHEMISTRY METHOD 02/04/2025 6:48 PM [facility] Glucose 88 70 - 100 mg/dL LAB CHEMISTRY METHOD 02/04/2025 6:48 PM [facility] BUN 11 5 - 25 mg/dL LAB CHEMISTRY METHOD 02/04/2025 6:48 PM [facility] Creatinine 1.14 0.70 - 1.30 mg/dL LAB CHEMISTRY METHOD 02/04/2025 6:48 PM [facility] eGFR 72 >=60 mL/min/1. 73m2 LAB CHEMISTRY METHOD 02/04/2025 6:48 PM [facility] Comment:Calculation based on the Chronic Kidney Disease Epidemiology Collaboration (CKD-EPI) equation refit without adjustment for race. BUN/Creatinine Ratio 9.6 LAB CHEMISTRY METHOD 02/04/2025 6:48 PM [facility] Calcium 9.3 8.5 - 10.5 mg/dL LAB CHEMISTRY METHOD 02/04/2025 6:48 PM [facility] AST (SGOT) 20 10 - 42 unit/L LAB CHEMISTRY METHOD 02/04/2025 6:48 PM [facility] ALT (SGPT) 21 10 - 60 unit/L LAB CHEMISTRY METHOD 02/04/2025 6:48 PM [facility] Alkaline Phosphatase 76 42 - 121 unit/L LAB CHEMISTRY METHOD 02/04/2025 6:48 PM EDT [facility] Total Protein 7.1 6.0 - 8.0 g/dL LAB CHEMISTRY METHOD 02/04/2025 6:48 PM EDT [facility] Albumin 4.1 3.2 - 5.0 g/dL LAB CHEMISTRY METHOD 02/04/2025 6:48 PM EDT [facility] Total Bilirubin 0.6 0.0 - 1.4 mg/dL LAB CHEMISTRY METHOD 02/04/2025 6:48 PM EDT [facility] Blood Venous blood specimen / Unknown Venipuncture / Unknown 02/04/2025 2:03 PM EDT 02/04/2025 2:03 PM EDT us Ernesto Espinoza [employer] LAB BLOOD ORDERABLES Final Resul t [facility] [address] [place] [address], [place] [phone] * (ABNORMAL) Lipid panel with reflex to direct LDL (11/28/2024 11:00 AM EDT) Cholesterol 182 0 - 200 mg/dL LAB CHEMISTRY METHOD 11/28/2024 2:37 PM EDT [facility] Triglycerides 142 0 - 150 mg/dL LAB CHEMISTRY METHOD 11/28/2024 2:37 PM EDT [facility] HDL 45 >=40 mg/dL LAB CHEMISTRY METHOD 11/28/2024 2:37 PM EDT [facility] LDL Calculated 109(H) 0 - 100 mg/dL LAB CHEMISTRY METHOD 11/28/2024 2:37 PM T [facility] VLDL Cholesterol Wenceslao 28.4 mg/dL LAB CHEMISTRY METHOD 11/28/2024 2:37 PM EDT [facility] Non HDL Chol. (LDL+VLDL) 137 <145 mg/dL LAB CHEMISTRY METHOD 11/28/2024 2:37 PM EDT [facility] Chol/HDL Ratio 4.0 0.0 - 4.4 LAB CHEMISTRY METHOD 11/28/2024 2:37 PM EDT [facility] Blood Venous blood specimen / Unknown Venipuncture / Unknown 11/28/2024 11:00 AM EDT 11/28/2024 11:00 AM EDT [facility] LAB BLOOD ORDERABLES Final Re sult [facility] ([facility] [address] [place] [address], [place] [phone] * Hepatitis C Screening (05/31/2018) Pathologist [facility] Hepatitis C Screening abstracted Historical Provider HEALTH MAINTENANCE Final Result * Colonoscopy (12/15/2015) Colonoscopy abstracted, no interpretation Anatomical Region Laterality Modality Other Historical Provider HEALTH MAINTENANCE Final Result from Last 3 Months or Most Recently Relevant to Health Maintenance Insurance [employer] * Guarantor: [facility] Account Type Relation to Patient Date of Phone Billing [place] [address] [employer] Advance Directives Documents on File Type Date Recorded 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
== END 2025-03-16 10:06 | disposition home or self-care (01) ==
LOC: HO.HNS 09:41
PROVIDERS: PCP Nurse Practitioner; Referring Provider Nurse Practitioner; Visit Provider Physician Assistant
DX: M51.369 Other intervertebral disc degeneration, lumbar region without mention of lumbar back pain or lower extremity pain (principal)
CPT/HCPCS: 99204

== ENCOUNTER → 2025-03-16 09:41 | Outpatient (BNVA) | payer OTHER, SELFPAY | PROVIDERS: PCP Nurse Practitioner; Visit Provider Physician Assistant | DX: M51.369 Other intervertebral disc degeneration, lumbar region without mention of lumbar back pain or lower extremity pain (principal) | CPT/HCPCS: 99202 ==